=== PATIENT | male | born 1985 | race Caucasian/White ===

== ENCOUNTER 2018-09-12 18:26 | Emergency (ER) | payer OTHER ==
[2018-09-12 18:58] VITALS: BP 155/92
--- NOTE | 2018-09-12 19:29 | UC ---
Throat Pain/Nasal Deonte HPI - HPI Summary HPI Summary: 33-year-old male comes in with chief complaint of runny nose and sinus pressure. Been going on for about a month. The rhinorrhea does have some color to it. No cough or chest congestion. He is ears also been plugged. He' s tried [id number] preparations which have not helped with the ears being plugged. [id number] medications to help with the sinusitis symptoms. - History of Current Complaint Chief Complaint: UCRespiratory Stated Complaint: SINUS CONGESTION, AND EAR ACHE Time Seen by Provider: 09/12/18 19:01 Pain Intensity: 0 - Allergies/Home Medications Allergies/Adverse Reactions: Allergies Allergy/AdvReac Type Severity Reaction Status Date / Time No Known Allergies Allergy Verified 09/12/18 18:54 PMH/Surg Hx/FS Hx/Imm Hx Previously Healthy: Yes - Surgical History Surgical History: Yes Surgery Procedure, Year, and Place: Appendectomy - Family History Known Family History: Positive: Non-Contributory - Social History Alcohol Use: Weekly Substance Use Type: None Smoking Status (MU): Never Smoked Tobacco Review of Systems All Other Systems Reviewed And Are Negative: Yes Constitutional: Positive: Negative Skin: Positive: Negative Eyes: Positive: Negative ENT: Positive: Ear Ache, Nasal Discharge, Sinus Congestion, Sinus Pain/ Tenderness Respiratory: Positive: Negative Cardiovascular: Positive: Negative Gastrointestinal: Positive: Negative Motor: Positive: Negative Neurovascular: Positive: Negative Musculoskeletal: Positive: Negative Neurological: Positive: Negative Psychological: Positive: Negative Is Patient Immunocompromised?: No Physical Exam Triage Information Reviewed: Yes Appearance: No Pain Distress, Well-Nourished, Ill-Appearing - MILD Vital Signs: Initial Vital Signs Temp 98.2 F 09/12/18 18:54 Pulse 68 09/12/18 18:54 Resp 18 09/12/18 18:54 BP 155/92 09/12/18 18:54 Pulse Ox 99 09/12/18 18:54 Vital Signs Reviewed: Yes Eye Exam: Normal Eyes: Positive: Conjunctiva Clear ENT: Positive: Pharyngeal erythema, Nasal congestion, Nasal drainage, Other - B/ L CERUMEN IMPACTION Neck exam: Normal Neck: Positive: Supple Respiratory: Positive: Lungs clear, Normal breath sounds, No respiratory distress Cardiovascular Exam: Normal Cardiovascular: Positive: RRR Musculoskeletal Exam: Normal Musculoskeletal: Positive: Strength Intact, ROM Intact Neurological Exam: Normal Neurological: Positive: Alert, Muscle Tone Normal Psychological Exam: Normal Psychological: Positive: Age Appropriate Behavior Skin Exam: Normal Throat Pain/Nasal Course/Dx - Course Course Of Treatment: Ears were irrigated by nursing with good results and removal of the cerumen bilaterally. - Differential Dx/Diagnosis Provider Diagnosis: Sinusitis, Impacted cerumen of both ears Discharge - Sign-Out/Discharge Documenting (check all that apply): Patient Departure All imaging exams completed and their final reports reviewed: No Studies - Discharge Plan Condition: Stable Disposition: HOME Prescriptions: Amoxicillin/Clavulanate TAB* [Augmentin TAB 875*] 875 mg PO BID #20 tab Patient Education Materials: Sinusitis (ED), Cerumen Impaction (ED) Referrals: Sarah Mccain [Primary Care Provider] - Additional Instructions: FOLLOW UP WITH YOUR DOCTOR IF NOT COMPLETELY IMPROVED. GET RECHECKED FOR ANY WORSENING OF YOUR CONDITION OR QUESTIONS OR CONCERNS. - Billing Disposition and Condition Condition: STABLE Disposition: Home
== END 2018-09-12 19:50 | disposition home or self-care (01) ==
LOC: UCEAST 18:26
DX: J32.9 Chronic sinusitis, unspecified (principal); H61.23 Impacted cerumen, bilateral
CPT/HCPCS: 99203; G0463

== ENCOUNTER 2019-09-17 12:38 | Emergency (ER) | payer OTHER ==
[2019-09-17 14:52] VITALS: BP 140/90
--- NOTE | 2019-09-17 15:15 | UC ---
Throat Pain/Nasal Deonte HPI - HPI Summary HPI Summary: 34 year old male with PMH + for sinusitis in past c/o 3-4 weeks of sinus pressure, frontal headaches, post nasal drip. Mild cough. no fever, chills. no SOB. no ear pain, no body aches, illness, GI symptoms. - History of Current Complaint Chief Complaint: UCRespiratory Stated Complaint: CONGESTED Time Seen by Provider: 09/17/19 15:06 Hx Obtained From: Patient Onset/Duration: Sudden Onset, Lasting Weeks - 3-4 weeks, Still Present Severity: Mild Pain Intensity: 0 Pain Scale Used: 0-10 Numeric Cough: Nonproductive - mild Associated Signs & Symptoms: Positive: Sinus Discomfort, Nasal Discharge. Negative: Fever, Vomiting - Allergies/Home Medications Allergies/Adverse Reactions: Allergies Allergy/AdvReac Type Severity Reaction Status Date / Time No Known Allergies Allergy Verified 09/17/19 14:49 Home Medications: Home Medications Amoxicillin/Clavulanate TAB* [Augmentin TAB 875*] 875 mg PO BID #20 tab [Rx] PMH/Surg Hx/FS Hx/Imm Hx Previously Healthy: Yes - Surgical History Surgical History: Yes Surgery Procedure, Year, and Place: Appendectomy - Family History Known Family History: Positive: Non-Contributory - Social History Occupation: Employed Full-time Alcohol Use: Occasionally Substance Use Type: None Smoking Status (MU): Never Smoked Tobacco Review of Systems All Other Systems Reviewed And Are Negative: Yes Constitutional: Negative: Fever, Chills ENT: Positive: Nasal Discharge, Sinus Congestion, Sinus Pain/Tenderness Respiratory: Positive: Cough - mild. Negative: Negative Cardiovascular: Positive: Negative Gastrointestinal: Positive: Negative Genitourinary: Positive: Negative Neurological/Mental Status: Positive: Negative Psychological: Positive: Negative Is Patient Immunocompromised?: No Physical Exam Triage Information Reviewed: Yes Appearance: Well-Appearing, No Pain Distress, Well-Nourished Vital Signs: Initial Vital Signs Temp 98.8 F 09/17/19 14:48 Pulse 74 09/17/19 14:48 Resp 18 09/17/19 14:48 BP 140/90 09/17/19 14:48 Pulse Ox 99 09/17/19 14:48 Vital Signs Reviewed: Yes Eyes: Positive: Conjunctiva Clear ENT: Positive: Hearing grossly normal, Pharyngeal erythema, Sinus tenderness - frontal/ max b/l, Other - cerumen impaction b/l, irrigated. Negative: Tonsillar swelling, Tonsillar exudate Neck: Positive: Supple, Nontender, No Lymphadenopathy. Negative: Nuchal Rigidity, Enlarged Nodes @ Respiratory: Positive: Chest non-tender, Lungs clear, Normal breath sounds, No respiratory distress, No accessory muscle use. Negative: Respiratory distress, Crackles, Rhonchi, Stridor Cardiovascular: Positive: RRR, Pulses Normal Neurological Exam: Normal Psychological Exam: Normal Skin Exam: Normal Throat Pain/Nasal Course/Dx - Course Course Of Treatment: - Antibiotics as prescribed - Increase fluid intake while taking antibiotics - Increase fluid intake - Humidifier at night to help with coughing - Good Hygiene, hand washing to prevent spread - Over the counter medications for symptoms - Motrin/ Tylenol as needed for pain, fever - Differential Dx/Diagnosis Differential Diagnosis/HQI/PQRI: Sinusitis, URI Provider Diagnosis: Sinusitis Discharge ED - Sign-Out/Discharge Documenting (check all that apply): Patient Departure All imaging exams completed and their final reports reviewed: No Studies - Discharge Plan Condition: Good Disposition: HOME Prescriptions: Amoxicillin/Clavulanate TAB* [Augmentin TAB 875*] 875 mg PO BID #20 tab Patient Education Materials: Sinusitis (ED), Cerumen Impaction (ED) Referrals: Sarah Mccain [Primary Care Provider] - Additional Instructions: - Antibiotics as prescribed - Increase fluid intake while taking antibiotics - Increase fluid intake - Humidifier at night to help with coughing - Good Hygiene, hand washing to prevent spread - Over the counter medications for symptoms - Motrin/ Tylenol as needed for pain, fever - Billing Disposition and Condition Condition: GOOD Disposition: Home
== END 2019-09-17 15:47 | disposition home or self-care (01) ==
LOC: UCEAST 12:38
DX: J32.9 Chronic sinusitis, unspecified (principal)
CPT/HCPCS: 99213; G0463